=== PATIENT | male | born 1955 | race Caucasian/White ===

== ENCOUNTER 2017-03-19 12:46 | Day surgery (SDC) | payer OTHER ==
[~2017-03-19 12:46] MED LIST: Lidocaine 1% MPF wEPI 200,000* 30 ML SDV ONE
[2017-03-19] MEDS ORDERED: Bupivacaine 0.25% SDV* 30 ML ONE (13:13)
[2017-03-19 14:57] VITALS: BP 153/79
--- NOTE | 2017-03-20 12:49 | OP ---
OPERATIVE REPORT: DATE OF OPERATION: 03/19/17 - [facility] DATE OF : 53 SURGEON: Ulices Arroyo MD. INDUSTRIAL CONVEYOR BELT REPAIRER: RADHA Richmond. ANESTHESIOLOGIST: None. ANESTHESIA: Local with 1% lidocaine with epinephrine and bicarbonate. PRE-OPERATIVE DIAGNOSIS: Right ring trigger finger. POST-OPERATIVE DIAGNOSIS: Right ring trigger finger. OPERATIVE PROCEDURE: Right ring trigger finger A1 larisa release. INDICATIONS: Zane has had injections, the trigger finger keeps coming back. We talked about risks and benefits, he elected to proceed with a right ring finger trigger finger release. ESTIMATED BLOOD LOSS: 5 mL. COMPLICATIONS: None. FINDINGS: As expected. DESCRIPTION OF PROCEDURE: Zane was seen in the preoperative holding area. We had a time-out and then I infiltrated the operative area with 1% lidocaine with epinephrine and bicarbonate. Short time later, we came back to the operating room. The arm was prepped and draped in the usual fashion and a time-out was performed. I made a 1-cm longitudinal incision in line with the A1 larisa of the right ring finger. Dissection was carried down bluntly and the soft tissue overlying the A1 flexor tendon sheath was retracted with Ragnells protecting the digital nerves. I then used a 15 blade to longitudinally incise the A1 larisa in line with the flexor tendons. I did this right in the midline. The release was extended completed proximally and distally with tenotomy scissors. I then had flexed and extended finger multiple times to ensure that there was absolutely no triggering. Once everything looked good, we irrigated out the wound. Skin was closed with 4-0 nylon suture. Wound was infiltrated with some 0.25% Marcaine. The area was dressed with Xeroform gauze, sterile Webril and John bandage. He was then taken to recovery room in stable condition. [id number]/[facility] #: [id number] [facility]Ann
== END 2017-03-19 14:17 | disposition home or self-care (01) ==
LOC: OREAST 12:46
PROVIDERS: ATTEND Orthopaedic Surgery Hand Surgery
DX: M65.341 Trigger finger, right ring finger (principal); G47.33 Obstructive sleep apnea (adult) (pediatric); Z87.891 Personal history of nicotine dependence
CPT/HCPCS: J2001

== ENCOUNTER 2018-02-01 06:57 | Day surgery (SDC) | payer OTHER ==
[2018-02-01] MEDS ORDERED: Lidocain 1% EPI 1:100,000 * 30 ML MDV ONE (07:08)
[2018-02-01 08:53] VITALS: BP 150/87
--- NOTE | 2018-02-01 11:12 | OP ---
OPERATIVE REPORT: DATE OF OPERATION: 02/01/18 DATE OF : 53 SURGEON: Ulices Arroyo MD BATTER OUT: None. ANESTHESIOLOGIST: None. ANESTHESIA: Local only with 1% lidocaine with epinephrine. PRE-OP DIAGNOSIS: Left middle trigger finger. POST-OP DIAGNOSIS: Left middle trigger finger. OPERATIVE PROCEDURE: Left middle trigger finger release. INDICATIONS: Zane has a left middle trigger finger that has come back despite an initial good respon se with the injection. He has had other trigger fingers released. We had talked about treatment opt ions and risks and benefits. He wanted to proceed. ESTIMATED BLOOD LOSS: 5 mL. COMPLICATIONS: None. FINDINGS: As expected. DESCRIPTION OF PROCEDURE: Zane was seen in the preoperative holding area. The correct side, site, a nd procedure were identified. In the preoperative area we had a time-out and then I infiltrated the operative area with 1% lidocaine with epinephrine. We then came back to the operating room and the and was prepped and draped in the usual fashion. I made an oblique incision in line with the skin crease over the A1 larisa of the left middle finger. The soft tissue was bluntly released with the tenotomy scissors gently off of the A1 larisa. Ragne ll retractors were placed. I released the A1 larisa just radial of the midline. Once release was co mpleted with a combination of the 15 blade and the tenotomy scissors, I had Znae flex his finger down multiple times. There was no catching or triggering. We therefore irrigated out the wound. The sk in was closed with 4-0 nylon suture. The wound was dressed. He was taken to the recovery room in sta ble condition. [id number]/[facility] #: [id number]
== END 2018-02-01 08:59 | disposition home or self-care (01) ==
LOC: OR 06:57
PROVIDERS: ATTEND Orthopaedic Surgery Hand Surgery
DX: M65.332 Trigger finger, left middle finger (principal); I10 Essential (primary) hypertension; E78.5 Hyperlipidemia, unspecified; Z85.46 Personal history of malignant neoplasm of prostate; G47.33 Obstructive sleep apnea (adult) (pediatric)

== ENCOUNTER 2019-01-24 08:18 | Day surgery (SDC) | payer MEDICARE ==
[2019-01-24] MEDS ORDERED: Bupivacaine 0.5% SDV PF* 30ML VIAL ONE (08:28)
[2019-01-24 11:00] VITALS: BP 141/80
--- NOTE | 2019-01-24 13:22 | OP ---
DATE OF OPERATION: 01/24/19 - [facility] DATE OF : 53 SURGEON: Ulices Arroyo MD PREPARER SAMPLES AND REPAIRS: RADHA Richmond ANESTHESIOLOGIST: None. ANESTHESIA: Local with digital block performed via 0.5% Marcaine. PRE-OP DIAGNOSIS: Right middle finger indeterminate soft tissue mass. POST-OP DIAGNOSIS: Right middle finger indeterminate soft tissue mass. OPERATIVE PROCEDURE: Excision of right middle finger indeterminate soft tissue mass sitting deep on the periosteum and little bit underneath the extensor pineda on the ulnar mid axial aspect of the middle phalanx. INDICATIONS: Zane has the mass which is firm and larger, little unsure about what it is. We talked about risks and benefits. He wanted to proceed with surgery. He understands there is very smaller chance that it could be anything that is not benign, but that is exceedingly small chance. ESTIMATED BLOOD LOSS: 5 mL. COMPLICATIONS: None. FINDINGS: See above and below. DESCRIPTION OF PROCEDURE: Zane was seen in the preoperative holding area. The correct site, side and procedure were identified. We had time-out. I anesthetized the finger with 0.5% Marcaine proximally around the MCP joint areas , where I performed the digital block . We then came back to the operating room , the arm was prepped and draped in usual fashion. A time-out was performed. I went ahead and made a midaxial incision over the mass along the midaxial line of the right middle finger over the middle phalanx. Dissection was carried down. The mass was seen emanating and coming out from underneath the extensor pineda, it was very firm soft tissue mass, this was excised via marginal excision with the [place] blade taking it right off the periosteum deeply and underneath the extensor pineda. Little bit out under the dorsum of the finger, the ulnar digital artery was visualized and preserved throughout the entirety of the case , little bit larger than I would expect. The mass went from just distal to the PIP joint, extending a good centimeter along the course of the middle phalanx. Once I excised it completely, I curetted it off the periosteum and the underneath the extensor tendon to make sure we did not have any additional mass remnants that remained. Wound was irrigated out. Skin was closed with 4-0 nylon suture. Soft dressing was applied, and he was taken to the recovery room in stable condition. [id number]/[facility] #: [id number] [facility]
== END 2019-01-24 11:02 | disposition home or self-care (01) ==
LOC: OR 08:18
PROVIDERS: ATTEND Orthopaedic Surgery Hand Surgery
DX: M67.441 Ganglion, right hand (principal); I10 Essential (primary) hypertension; J45.909 Unspecified asthma, uncomplicated; E78.5 Hyperlipidemia, unspecified; M19.90 Unspecified osteoarthritis, unspecified site; Z85.46 Personal history of malignant neoplasm of prostate; G47.33 Obstructive sleep apnea (adult) (pediatric)
CPT/HCPCS: 88307; J3490

== ENCOUNTER 2019-09-15 05:34 | Observation (INO) | payer MEDICARE ==
[~2019-09-15 05:34] MED LIST changes: +Buffered Lidocaine 1% SYRIN* 1 ML/SYRINGE INTRADERM ONE; -Lidocaine 1% MPF wEPI 200,000* 30 ML SDV ONE
[2019-09-15] MEDS ORDERED: Lactated Ringers 1000 ML Bag* 1,000 ML IV SCH (06:00)
[2019-09-15] MEDS ORDERED: Buffered Lidocaine 1% SYRIN* 1 ML/SYRINGE INTRADERM ONE (06:12)
[2019-09-15 06:29] LABS: Urine Appearance Clear; Urine Bilirubin Negative (Negative); Urine Blood Negative (Negative); Urine Color Yellow; Urine Glucose Negative (Negative); Urine Ketones Negative (Negative); Urine Nitrite Negative (Negative); Urine Protein Negative (Negative); Urine Specific Gravity 1.027 (1.010-1.030); Urine Urobilinogen Negative (Negative)
[2019-09-15 06:47] LABS: Hematocrit 43 % (42-52); Hemoglobin 15.4 g/dL (14.0-18.0); Mean Corpuscular HGB Conc 36 g/dL (31-36); Mean Corpuscular Hemoglobin 31 pg (27-31); Mean Corpuscular Volume 88 fL (80-94); Mean Platelet Volume 7.1 fL (7.4-10.4); Platelet Count 228 10^3/uL (150-450); Red Blood Count 4.93 10^6 /uL (4.18-5.48); Red Cell Distribution Width 13 % (10-15); White Blood Count 11.2 10^3/uL (3.5-10.8)
[2019-09-15 07:03] LABS: BUN/Creatinine Ratio 37.2 (8-20); Blood Urea Nitrogen 32 mg/dL (6-24); CO2 Carbon Dioxide 21 mmol/L (22-32); Calcium 9.2 mg/dL (8.6-10.3); Chloride 102 mmol/L (101-111); EGFR Non-African American 89.2 (>60); Glucose 124 mg/dL (70-100); Sodium 135 mmol/L (135-145)
[2019-09-15] MEDS ORDERED: Lidocaine 1% w EPI 1:200,000* SDV 30 ML VIAL ONE (07:07)
[2019-09-15] MEDS ORDERED: Thrombin 5,000 UNITS* 1 APPLIC KIT - topical use - TOPICAL ONE (07:07)
[2019-09-15] MEDS ORDERED: Bacitracin INJECTION* 50,000 UNITS ONE ×2 (07:08→11:00)
[2019-09-15] MEDS ORDERED: Rocuronium* 10 MG/ML VIAL ONE ×3 (07:14→10:33)
[2019-09-15] MEDS ORDERED: fentaNYL* 50 MCG/ML 2 ML VIAL (100 MCG VIAL) ONE ×2 (07:14→08:52)
[2019-09-15 07:17] LABS: Anion Gap 12 mmol/L (2-11)
[2019-09-15] MEDS ORDERED: Midazolam* 1 MG/ML 2 ML VIAL (2 MG) ONE (07:19)
[2019-09-15] MEDS ORDERED: HYDROmorphone INJ1* 1 MG/ML SYRINGE IV PRN (07:37)
[2019-09-15] MEDS ORDERED: Naloxone* 0.4 MG/ML 1 ML VIAL IV PRN (07:37)
[2019-09-15] MEDS ORDERED: Vancomycin(*) 1,750 MG in NS 0.9% 500 ML* 500 ML IVPB ONE (08:00)
[2019-09-15] MEDS ORDERED: Lidocaine 2% PF * 5 ML VIAL ONE (08:42)
[2019-09-15] MEDS ORDERED: Dexamethasone IV* 4 MG/ML 1 ML (4 MG) ONE (08:42)
[2019-09-15] MEDS ORDERED: Succinylcholine* 20 MG/ML 10 ML VIAL ONE (08:42)
[2019-09-15] MEDS ORDERED: Propofol* 10 MG/ML 20 ML BTL ONE (08:42)
[2019-09-15] MEDS ORDERED: Acetaminophen IV 1GM/100ML * 100 ML ONE (11:04)
[2019-09-15] MEDS ORDERED: Ketorolac INJ* 30 MG/ML 1 ML VIAL ONE (11:04)
[2019-09-15] MEDS ORDERED: HYDROmorphone INJ1* 1 MG/ML SYRINGE ONE (11:43)
[2019-09-15] MEDS ORDERED: Magnesium Hydroxide LIQ* 30 ML UDC PO PRN (11:47)
[2019-09-15] MEDS ORDERED: Acetaminophen TAB* 325 MG PO PRN (11:47)
[2019-09-15] MEDS ORDERED: Ondansetron INJ* 2 MG/ML VIAL IV PRN (11:47)
[2019-09-15] MEDS ORDERED: oxyCODONE TAB* 5 MG TAB PO PRN ×2 (11:47)
--- NOTE | 2019-09-15 12:55 | OP ---
DATE OF OPERATION: 09/15/19 - ROOM #334 DATE OF : 53 SURGEON: Pako Christensen MD BRAKE OPERATOR SHEET METAL: GABRIEL Barrera. The case was done with the assistance of GABRIEL because of the complexity of the case. ANESTHESIA: General. OPERATIVE PROCEDURE: The patient underwent L2 spinous process biopsy with L2 laminectomy and exploration of the epidural space with removal of epidural tissue and decompression. ESTIMATED BLOOD LOSS: 20 cc. COMPLICATIONS: None. SUMMARY: The patient is a very pleasant 64-year-old gentleman with history of prostate cancer, status post prostatectomy several years ago. He had a rising PSA and he then started having episodes of back pain after twisting his back. Because of MRI findings consistent with L2 spinous process enhancing lesion and epidural enhancing lesion, he underwent a CT-guided biopsy which was nondiagnostic and he was offered the option of an open biopsy. After explaining the expectations, limitations, and possible complications of the procedure to the patient with complications of surgery including, but not limited to bleeding, infection, risk of injury to adjacent structures, coma, paralysis, , need for additional procedures, anesthesia risks, stroke, blindness, cancer, instability, spinal fluid leak, inability to obtain diagnostic tissue, spread of the tumor, loss of bladder or bowel control, postoperative hematoma, DVT with pulmonary embolism, injury to the trachea or esophagus, need for tracheostomy or gastrostomy, need for prolonged ICU stay, prolonged hospitalization, prolonged rehabilitation, sophie the coronavirus in the hospital environment; the patient was agreeable to proceed with surgery. The patient understood that his condition may not improve and in fact may get worse after surgery and that he may need to have additional procedures in the future. He also understood that operative plan may be modified according to intraoperative findings and conditions and that the procedure may be abandoned or done in more than [address] Johnson was also in agreement for need for tissue biopsy for appropriately treating the patient with radiation therapy. The patient understood that he may require prolonged hospitalization, prolonged ICU stay, prolonged rehabilitation with prolonged dependence on the ventilator. DESCRIPTION OF PROCEDURE: The patient was brought to the operating room and was placed under general anesthesia by the anesthesia team. He was carefully positioned prone on the Timothy frame on the Kush table and all bony prominences were meticulously padded. His skin was prepped and draped in the standard fashion. After appropriate surgical pause and patient identification, a small midline incision was marked on the skin over the spinous process of L2 and L2-3 disk space with the assistance of intraoperative fluoroscopic imaging. The skin was infiltrated with local anesthetic. A #10 surgical blade was used to incise the skin. The incision was carried down through the subcutaneous tissue with Bovie cautery. The self-retaining retractors were introduced into the field and the dorsal fascia was divided in both sides of the midline with use of Bovie cautery. The spinous process was then exposed as well as the lamina after the paraspinal musculature was elevated with Bovie cautery and periosteal elevators in subperiosteal fashion. Self-retaining retractors were introduced further into the field and second intraoperative imaging was obtained verifying the correct surgical level. Imaging was reviewed also with Dr. Seo from Radiology to ensure the appropriate surgical site, who was also in agreement. The spinous process of L2 was then removed under microscopic magnification and was sent for pathology. Similarly, a partial laminectomy was performed and the specimen was also sent for pathology. After removing the lamina, significant amount of dorsal epidural inflammatory tissue was encountered and after exposing the margins of normal dura, this was gently removed with pituitary rongeurs and Kerrison punches. Several specimens were sent for pathology. Frozen section revealed possible lymphoid tissue versus normal reactive tissue. Significant amount of epidural compression was encountered as expected from preoperative MRI. Then, the decompression was extended caudally in order to ensure adequate decompression and the superior part of the spinous process of L3 was gently removed as well as the superior part of the lamina in order to facilitate excellent decompression after decompression was performed with use of high-speed drill, Leksell rongeurs, and Kerrison punches. At the end of the decompression, the thecal sac was found to be free of any pressure phenomenon. After copious irrigation, confirmation of meticulous hemostasis, and meticulous inspection, the self-retaining retractors were gently removed and meticulous hemostasis was again confirmed as well as copious irrigation and meticulous inspection. This wound was then was closed by layers with 0 interrupted Vicryl sutures to approximate the dorsal fascia and combination of 0 and 2-0 inverted interrupted Vicryl sutures to approximate the subcutaneous tissue. The skin was then approximated with #1 Prolene sutures. At the end of the procedure, all counts were reported to be correct. The patient remained hemodynamically stable throughout the case. The incision was covered with sterile dressings. The patient was then turned supine, was extubated, and was transferred to Recovery in excellent condition. [id number]/[facility] #: [id number] RADHA
--- NOTE | 2019-09-15 17:12 | CONS ---
[facility] MEDICINE CONSULTATION REPORT: DATE OF CONSULT: 09/15/19 PROVIDER: Gera Burton NP ATTENDING PHYSICIAN: Dr. Christensen. CONSULTING PHYSICIAN: Dr. Santoyo (dictation provided by Gera Burton NP). REASON FOR CONSULT: L2 spinous process biopsy with L2 laminectomy and exploration of epidural space, removal of epidural tissue and decompression. HISTORY OF PRESENT ILLNESS: Mr. Mancini is a 64-year-old gentleman with history significant for prostate cancer, hypertension, and sleep apnea. The patient reports that he had prostatectomy in 2010 successfully, but reports that back in May he was picking something up and twisted and experienced some severe back pain that just progressively worsened. The patient's pcp ordered MRI, which found a lesion on the L2 spinous process. There was concern for metastatic prostate cancer to spine. The patient did have CT-guided biopsy which was nondiagnostic, so the option of open biopsy was offered and the patient accepted. The patient underwent L2 spinous process biopsy with L2 laminectomy and exploration of the epidural space with removal of epidural tissue and decompression. Postsurgery, the patient is alert and oriented x3, sitting up in bed, watching TV. The patient reports that he was able to ambulate from wheelchair to the bed on arrival to the floor. Currently, the patient is not experiencing severe pain or discomfort. Does state that he would feel more comfortable going home. PAST MEDICAL HISTORY: 1. Prostate cancer. 2. Hypertension. 3. Hyperlipidemia. PAST SURGICAL HISTORY: 1. Prostatectomy. 2. Left shoulder surgery. 3. Left knee arthroscopy x2. 4. Right knee arthroscopy. 5. Carpal tunnel surgery, right hand. 6. Carpal tunnel surgery, left hand. 7. Trigger release, right ring finger. 8. Trigger release, left middle finger. 9. Vasectomy. 10. Eyelid surgery. MEDICATIONS: 1. Atorvastatin 10 mg p.o. daily. 2. Atenolol 50 mg p.o. daily. ALLERGIES: PENICILLIN, the patient reports hives. FAMILY HISTORY: The patient's father has at 84 years of age related to Alzheimer's, CAD. The patient's mother is alive and well, 88 years of age, history only of hypertension and asthma. The patient does have 5 brothers, 4 living, 1 due to CAD. The other brothers have history of colon cancer, thyroid cancer, and asthma. SOCIAL HISTORY: The patient denies smoking. The patient denies drinking. The patient denies drug use. Surrogate decision maker is , Sammi Mancini. REVIEW OF SYSTEMS: General: No fevers, chills, or unintended weight loss. Cardiac: No chest pain, no edema. Respiratory: Denies cough, shortness of breath, or congestion. GI: No nausea, vomiting, diarrhea, or abdominal pain. : Denies dysuria, hematuria. Neuro: No focal weaknesses or sensory loss reported. Eyes: No visual complaints. ENT: No dysphagia. Musculoskeletal: No arthralgias or myalgias. Skin: No rashes or lesions. Psych: No depression or anxiety. PHYSICAL EXAM: Vital Signs: 96.6 temp, heart rate 82, respiratory rate 18, oxygen saturation 95% on room air, blood pressure 133/63. General: Mr. Mancini is an obese male, sitting up in bed, watching TV, does not appear to be in any acute distress. Head is atraumatic, normocephalic. Eyes: PERRLA. Sclerae anicteric, not pale. Oral mucosa is moist and no oropharyngeal erythema, petechia noted on the soft palate and uvula not irritative. Neck is supple. Lung sounds clear bilaterally. No wheezes, rales , or rhonchi. Heart sounds S1, S2. Regular rate and rhythm. No murmurs, rubs , or gallops. Abdomen: Soft, round, nontender. Bowel sounds present x4 quadrants. Extremities: Pulses +2 throughout. No peripheral edema noted. Neurologic: He is awake, alert, and oriented x3. Cranial nerves II through XII are intact. Visual lackey are full to confrontation. EOMs intact. Pupils are equal and reactive to light. Absent of focal neurological deficits. Manager Machine equal. Sensation intact to all extremities, 5/5 strength in upper and lower extremities. Skin: Grossly intact. Site of incision covered with dressing which is clean, dry, and intact. DIAGNOSTIC STUDIES/LAB DATA: White blood cell count 11.2, hemoglobin 15.4, hematocrit 43, platelets 228. APTT 28.8. Sodium 135, potassium 4.3, chloride 102, carbon dioxide 21, BUN 32, creatinine 0.6, calcium 9.2. IMPRESSION AND PLAN: Mr. Mancini is a 64-year-old gentleman with history significant for hypertension and hyperlipidemia, prostate cancer, who presents to the hospital for planned open biopsy of lumbar spine and laminectomy of L2. In the immediate postoperative period, the patient is alert and oriented without complaints. Hospital Medicine was called regarding consultation. Our recommendations are as follows: 1. Status post laminectomy of L2. Oxycodone for pain management, Zofran for nausea and vomiting. PT evaluation not indicated for this pt. pt is ambulating with steady gait. Normal sensation and strength in lower extremities. Numbness and tingling not indicated. Pt would like to go home today if possible. Will discuss this as an option with Dr. Christensen. 2. Hypertension. Atenolol 10mg PO daily 3. Hyperlipidemia. Atorvastatin 10mg PO daily 4. Constipation. Milk of magnesia as needed. 5. DVT prophylaxis: The patient is ambulatory with SCDs while in bed. 6. Code status: The patient is full code. I discussed my plan of care with my attending Dr. Santoyo and she is in agreement TIME SPENT: Approximately 45 minutes was spent in consultation of this patient with more than half the time was spent with the patient at bedside reviewing events leading thus far to the hospitalization, performing physical exam, and reviewing my plan of care. GERA BURTON, SANDEEP [id number]/[facility] #: [id number] MTDD
[2019-09-15 17:20] VITALS: BP 136/72
--- NOTE | 2019-09-15 18:27 | DS ---
CC: Dr. Christensen; Dr. Hernandez * DISCHARGE SUMMARY: DATE OF ADMISSION: 09/15/19 DATE OF DISCHARGE: 09/15/19 PROVIDER: Gera Burton NP ATTENDING PHYSICIAN WHILE IN THE HOSPITAL: Dr. Santoyo * (dictated by Gera Burton NP). PRIMARY CARE PROVIDER: Dr. Kennedy Hernandez. PRIMARY DIAGNOSES: 1. Status post L2 laminectomy. 2. L2 spinous process biopsy. SECONDARY DIAGNOSES: 1. Prostate cancer 2. Hypertension. 3. Hyperlipidemia. PERTINENT STUDIES WHILE IN THE HOSPITAL: Please see consultation report from . HISTORY OF PRESENT ILLNESS/HOSPITAL COURSE: This is going to be an abbreviated discharge summary. Please see consultation report for the patient's detailed HPI. The patient is status post L2 laminectomy with L2 spinous process biopsy. The patient is very eager to go home. Related to the current pandemic of COVID- 19, the patient would feel safer and more comfortable at home. He has been evaluated for 6 hours with no deviations from his baseline. The patient has been up walking, ambulating around the unit without difficulty, without severe pain. The patient has been urinating without issue. The patient is alert and oriented x3. PHYSICAL EXAM ON DISCHARGE: Please see consultation report from 09/15/19. DISCHARGE PLAN AND INSTRUCTIONS: Diet will be regular. Activity: No bending, no driving, no lifting until cleared by Dr. Christensen. Keep the dressing clean and dry for 2 days, then may sponge bath. If dressing becomes soiled or falls off, cover the wound with gauze and tape. Ambulate as tolerated. Percocet or tramadol as ordered as needed for pain. Follow up with Dr. Christensen in 1 week. Please return to the hospital if you develop any chest pain, shortness of breath, fever, or other concerning symptoms. DISCHARGE MEDICATIONS: New medication: 1. Oxycodone/acetaminophen 5/325, take 1 tablet by mouth every 6 hours as needed for pain. I STOP was checked and pt was prescribed 7 days worth of Tramadol 1 month prior. Continued home medications: 1. Atenolol 50 mg p.o. q.a.m. 2. Atorvastatin 20 mg p.o. q.a.m. 3. Calcium citrate/vitamin D3 one tab p.o. q.a.m. 4. Vitamin D3 50 mcg p.o. q.a.m. 5. Vitamin B12 5000 mcg p.o. q.a.m. 6. Cyclobenzaprine 10 mg p.o. t.i.d. as needed for muscle spasm. 7. Dexamethasone 4 mg p.o. b.i.d. 8. Montelukast sodium 10 mg p.o. q.a.m. 9. Multivitamin 1 tab p.o. q.a.m. 10. Xyzal 5 mg p.o. q.a.m. CONDITION ON DISCHARGE: Stable. DISPOSITION: Home. TIME SPENT: Approximately 30 minutes was spent on the discharge of this patient , approximately half the time was spent at bedtime evaluating the patient, discussing the plan of care, and arranging for prescribed medications. GERA BURTON, SANDEEP [id number]/[facility] #: [id number] RADHA
== END 2019-09-15 18:30 | disposition home or self-care (01) ==
LOC: OR 05:34 → SSU 12:39
PROVIDERS: ADMIT Neurological Surgery; ATTEND Internal Medicine
DX: M96.1 Postlaminectomy syndrome, not elsewhere classified (principal); C61 Malignant neoplasm of prostate; E78.5 Hyperlipidemia, unspecified; I10 Essential (primary) hypertension; E66.9 Obesity, unspecified; Z85.46 Personal history of malignant neoplasm of prostate; M54.5 Low back pain; G47.33 Obstructive sleep apnea (adult) (pediatric); Z88.0 Allergy status to penicillin; Z79.899 Other long term (current) drug therapy
CPT/HCPCS: 36415; 71046; 76000; 80048; 81003; 85027; 85730; 86850; 86900; 86901; 87070; 87073; 87205; 88184; 88187; 88188; 88189; 93005; 96374; A9270-GY; G0378; J0330; J1100; J1170; J1885; J2001; J2250; J2704; J3010; J3370